=== PATIENT | male | born 1950 | race Two or more races ===

== ENCOUNTER 2025-04-11 19:14 | Emergency (ER) | payer MEDICARE, SELFPAY ==
[2025-04-11 19:27] VITALS: BP 124/61
[2025-04-11 19:45] LABS: % Basophils 0.5 % (0-2); % Eosinophils 3.8 % (0-6); % Immature Granulocytes 1.8 % (0-0.5); % Lymphocytes 32.2 % (20.5-51.1); % Monocytes 8.4 % (1.7-9.3); % Neutrophils 53.3 % (42.2-75.2); Absolute Eosinophils 0.3 10^3/uL (0-0.7); Absolute Immature Granulocytes 0.1 10^3/uL (0-0.05); Absolute Lymphocytes 2.4 10^3/uL (1.2-3.4); Absolute Monocytes 0.6 10^3/uL (0.1-0.6); Absolute Neutrophils 3.9 10^3/uL (1.4-6.5); Hematocrit 37.2 % (39.0-52.0); Hemoglobin 12.4 g/dL (13.0-18.0); Mean Corp Hgb Conc. 33.3 g/dL (33.0-37.0); Mean Corpuscular Hgb 30.1 pg (27.0-31.0); Mean Corpuscular Volume 90.3 fL (80.0-94.0); Mean Platelet Volume 9.6 fL (7.4-10.4); Nucleated Red Blood Cells % 0 % (-); Platelet Count 185 10^3/uL (130-400); Red Blood Cell Count 4.12 10^6/uL (4.70-6.10); Red Cell Dist. Width 16.5 % (11.5-14.5); White Blood Cell Count 7.3 10^3/uL (4.8-10.8)
[2025-04-11 20:00] LABS: ALT (SGPT) 15 U/L (0-50); AST (SGOT) 23 U/L (17-59); Albumin 3.9 g/dl (3.5-5.0); Alkaline Phosphatase 86 U/L (38-126); Blood Urea Nitrogen 24 mg/dl (9-20); Calcium 8.7 mg/dl (8.4-10.2); Carbon Dioxide 27 mmol/L (22-30); Chloride 107 mmol/L (98-107); Glucose 166 mg/dl (70-99); Potassium 5.4 mmol/L (3.5-5.1); Sodium 138 mmol/L (135-145); Total Bilirubin 0.6 mg/dl (0.2-1.3); Total Protein 6.6 g/dl (6.3-8.2); eGFR > 60.00
[2025-04-11 23:03] VITALS: BP 116/66
[2025-04-11 23:34] VITALS: BMI 29.3
--- NOTE | 2025-04-11 23:44 | ED.GENMED ---
History of Present Illness
General
Chief Complaint: Breathing Problem
Source: patient and spouse
Exam Limitations: none
Time Seen by Provider: 04/11/25 23:09
Nursing documentation reviewed up to this point in time: agreed with
History of Present Illness
History of Present Illness:
Patient is a 74-year-old male with history of diabetes who presents the emergency department for evaluation of lower extremity swelling and dyspnea on exertion. Patient reports intermittent swelling of his bilateral lower extremities occurring over
the past few weeks however much worse over the past 3 days. He also reports feeling more short of breath while walking. He denies any associated chest pain, cough, fever. He denies any severe back pain. He has noticed about a 5 pound weight gain
over the past month or so.
Patient was seen by his primary care provider yesterday for evaluation of lower leg swelling and shortness of breath or outpatient lab work was obtained. Patient's D-dimer resulted positive today and he was referred to the emergency department for
further evaluation.
Of note�patient did recently fracture his left shoulder after mechanical fall a few weeks ago.
Past History
Past History
ED Past Medical History: None
ED Past Surgical History: None
Social History
Tobacco: Non-smoker
Review of Systems
Review of Systems
Allergies reviewed?: Yes
All Other Systems: ROS reviewed and negative except as documented in HPI and ROS
Phy Exam
Physical Exam
Physical Exam:
Vitals: Patient's vital signs are stable. Afebrile
General: Patient is well appearing, no acute distress. Nontoxic appearing
Skin: Warm and dry, no rashes or lesions
Head: Normocephalic, atraumatic
Eyes: Sclera nonicteric. EOMs intact. No nystagmus.
Throat: Protecting airway
Neck: Normal ROM, no cervical spine tenderness, no meningismus
Cardiac: Regular rate and rhythm, no murmurs.
Pulm: Normal respiratory effort. Scattered fine crackles bilaterally.
.
Abdomen: Abdomen soft and nontender.
Extremities: Shoulder sling on left upper extremity. 2+ pitting edema of bilateral lower extremities. Palpable DP pulses bilaterally. No erythema or warmth of lower extremities with negative Homans' sign bilaterally.
Neuro: AAOx3. Grossly intact.
Psychiatric: Normal affect.
Scores
Heart Failure Risk
Heart Failure Risk Score: Not Applicable
Course
Orders/Labs/Results
Orders:
Orders
04/11/25 19:33
US Legs, Bilateral [US Periph Venous LOWER Ext Willian] Urgent
Comment:
Reason For Exam: swelling
04/11/25 19:39
Complete Blood Count/With Diff Urgent
Comprehensive Metabolic Panel Urgent
04/11/25 23:31
Electrocardiogram (*1) Urgent
Reason for Study: Shortness of Breath
EKG- Treatment ONCE
04/11/25 23:38
NT-proBNP Urgent
Troponin I Urgent
04/12/25 00:01
CT Chest PE Study Urgent
Reason For Exam: SOB, elevated dimer
04/12/25 02:11
Incentive Spirometry [Rx Incentive Spirometry] [RESP] Urgent
Frequency: q1h while awake
Abnormal Lab Results
04/11/25
19:39
RBC 4.12 L 10^6/uL
(4.70-6.10)
Hgb 12.4 L g/dL
(13.0-18.0)
Hct 37.2 L %
(39.0-52.0)
RDW 16.5 H %
(11.5-14.5)
Abs Immat Gran (auto) 0.1 H 10^3/uL
(0-0.05)
Immature Gran % 1.8 H %
(0-0.5)
Potassium 5.4 H mmol/L
(3.5-5.1)
BUN 24 H mg/dl
(9-20)
Glucose 166 H mg/dl
(70-99)
04/11/25 19:39
04/11/25 19:39
Vital Signs
Initial and Last Documented VS:
Initial Vital Signs
Temp Pulse Resp BP Pulse Ox
98.4 F 74 16 124/61 98
04/11/25 19:27 04/11/25 19:27 04/11/25 19:27 04/11/25 19:27 04/11/25 19:27
Last Documented Vital Signs
Temp Pulse Resp BP Pulse Ox
97.9 F 69 16 113/61 99
04/11/25 23:40 04/12/25 00:43 04/12/25 00:43 04/12/25 02:00 04/12/25 02:15
MDM/Problems Addressed
Differential Diagnosis Includes:
Not limited to: Congestive heart failure, DVT, lymphedema, pulmonary embolism, Rodriguez's cyst, etc.
MDM/Problems Addressed:
74-year-old male with recently fractured left proximal humerus who presents with concerns of bilateral lower extremity swelling and mild dyspnea worsening over the past few days. He had outpatient lab work obtained yesterday with primary care which
revealed an elevated d-dimer. Patient has stable vital signs on arrival, he is in no apparent respiratory distress. Physical exam as above. Patient will appearing, in no apparent distress with sling on left shoulder. He does have one + pitting edema
of bilateral lower extremities. No erythema or warmth or evidence of cellulitis. Lungs clear bilaterally. \\
Prior to my evaluation � basic lab work was obtained, which reveals mild hyperkalemia although no evidence of EKG changes. No others abnormalities on labwork. He also had a negative US of b/l lower extremities.
No evidence of infectious process today. While b/l LE US is negative for DVT � given history of dyspnea with elevated d-dimer � will check CTA chest as well as troponin, pro-BNP to rule out other etiology, such as congestive heart failure.
Update: CT chest without any evidence of pulmonary edema or pulmonary embolism. Pro-bnp 174 with undetectable troponin. Work up an emergency department negative. He remains well and comfortable appearing in no distress. Ultimately suspect edema
likely dependent given recent shoulder injury and limited mobility. Likely component of deconditioning, as well. Feel stable for discharge home. Will provide patient with incentive spirometer and advise increasing physical activity and elevating.
He will follow up with primary care. Return precautions discussed.
Chronic conditions affecting care:
Diabetes
Acute Exacerbation and/or Progression of Chronic Illness:
Acute hyperglycemia
*Radiology
Radiology exam reviewed: radiology read reviewed (Bilateral lower extremity ultrasound without evidence of DVT)
*Pulse Oximetry
SaO2: 98
Oxygen Mode of Delivery: Room air
Patient hypoxic: no
*EKG
Interpreted by ED Provider?: Yes
EKG Intrepretation Date: 04/11/25
Interpretation: normal
Comparison EKG: no comparison EKG present
Heart Rate: 61
Rate: normal
Rhythm: sinus
[place]: normal axis
Interval: normal QT interval
QRS Pattern: normal QRS
Ischemia: no ischemia
*[employer] Interpretation
Rate: normal
Interpretation: normal
Heart Rate: 72
Rhythm: sinus
*Critical Care Note
Total Time (30-74mins, 75-104mins- exclusive of procedures): Not Applicable
ED Attending Note
-
Portions of this chart may have been created with voice recognition software.� Occasional wrong word or��sound alike� substitutions may have occurred due to the inherent limitations of voice recognition software.
Discharge Plan
Departure
Patient Disposition: Home (Routine Discharge)
Date of Disposition: 04/12/25
Time of Disposition: 02:06
Patient with high blood pressure during this ER visit?: No
Condition: Good
Discharge Problem:
Localized swelling of both lower extremities
Instructions: Swelling, Shortness of breath in adults - ED discharge instructions
Referrals:
Luis Ovalles MD [Family Provider, Family Practice] - Follow up in 2-3 days
Activity Restrictions/Additional Instructions:
RETURN TO THE EMERGENCY DEPARTMENT WITH ANY CHEST PAIN, SHORTNESS OF BREATH, FEVERS OR PRODUCTIVE COUGH, WORSENING PAIN OR SWELLING IN BILATERAL LOWER EXTREMITIES, OR ANY OTHER CONCERNS
- As discussed�your lab work showed a mild elevation in your potassium level. Stay well-hydrated. Please have this rechecked with your primary care to ensure trending down.
- Your ultrasound of your lower leg showed no evidence of blood clots. Your CT scan of your chest showed no evidence of blood clots in the lung or other acute abnormalities.
- I suspect your lower extremity swelling is likely secondary to dependent edema. Please be sure to walk around frequently and elevate your legs as often as possible. Please use incentive spirometer multiple times per hour when awake.
- Follow-up with primary care on Monday for further evaluation/management and to ensure that symptoms are improving
Monitor your symptoms closely and return to the emergency department with any acute worsening/new symptoms or any other concerns
Interventions
Interventions:
*Risk Screen - Suicide Last Done: 04/11/25 19:27
*General Assessment Last Done: 04/11/25 19:27
*Neglect/Abuse Screening Last Done: 04/12/25 02:56
*ED- Fall Risk Assessment Last Done: 04/12/25 02:56
*ED COVID-19 Vaccine History Last Done: 04/12/25 02:56
*Nursing Disposition Last Done: 04/12/25 02:56
ED- Cardiac Assessment Last Done: 04/11/25 23:47
ED- Pulmonary Assessment Last Done: 04/11/25 23:47
Discharge Date and Time
Discharge Date/Time: 04/12/25 02:57
Print Language: BRITISH
[2025-04-12] VITALS: BP 112/62
[2025-04-12 00:26] LABS: NT-proBNP 174 pg/ml; Troponin I < 0.012 ng/ml
[2025-04-12 01:10] VITALS: BP 114/55
[2025-04-12 02:00] VITALS: BP 113/61
== END 2025-04-12 02:57 | disposition home or self-care (01) ==
LOC: EMR 19:14
PROVIDERS: Emergency Medicine; Physician Assistant; EMERGENCY PHYSICIAN Emergency Medicine; FAMILY PHYSICIAN Family Medicine
DX: R22.43 Localized swelling, mass and lump, lower limb, bilateral (principal); E11.9 Type 2 diabetes mellitus without complications; Z91.81 History of falling
CPT/HCPCS: 99284; 71275; 80053; 83880; 84484; 85025; 93005; 93970; Q9967